=== PATIENT | male | born 1955 | race Caucasian/White ===

== ENCOUNTER 2019-02-20 12:31 | Emergency (ER) | payer OTHER ==
[2019-02-20] MEDS ORDERED: cefTRIAXone 1 GM Vial IM ONE (12:39)
[2019-02-20] MEDS ORDERED: Lidocaine 1% 10 ML MDV INJECT ONE (12:39)
[2019-02-20] MEDS ORDERED: Diphtheria,Pertussis(Acell),Tetanus Vaccine 0.5 ML Syringe IM ONE (12:39)
[2019-02-20] MEDS ORDERED: Lidocaine 1% PF 2 ML SDV INJECT ONE (12:47)
[2019-02-20] MEDS ORDERED: Bacitracin Oint 1 GM U/D Packet TOP ONE (13:33)
--- NOTE | 2019-02-20 13:38 | EDM.PDOC ---
ED HPI GENERAL MEDICAL PROBLEM - General Chief Complaint: Laceration Stated Complaint: RIGHT HAND LACERATION Time Seen by Provider: 02/20/19 13:34 Source of Information: Reports: Patient - History of Present Illness INITIAL COMMENTS - FREE TEXT/NARRATIVE: HISTORY AND PHYSICAL: History of present illness: []Patient presents after getting his hand on the table saw superficial simple laceration involving the palmar aspect of the right hand hyperthenar eminence although extending across the and 8 cm Tendon function is intact pre-and post suture no deep tissues affected however full-thickness skin laceration linear simple Review of systems: As per history of present illness and below otherwise all systems reviewed and negative. Past medical history: As per history of present illness and as reviewed below otherwise noncontributory. Surgical history: As per history of present illness and as reviewed below otherwise noncontributory. Social history: No reported history of drug or alcohol abuse. Family history: As per history of present illness and as reviewed below otherwise noncontributory. Physical exam: HEENT: Atraumatic, normocephalic, pupils reactive, negative for conjunctival pallor or scleral icterus, mucous membranes moist, throat clear, neck supple, nontender, trachea midline. Lungs: Clear to auscultation, breath sounds equal bilaterally, chest nontender. Heart: S1S2, regular, negative for clicks, rubs, or JVD. Abdomen: Soft, nondistended, nontender. Negative for masses or hepatosplenomegaly. Negative for costovertebral tenderness. Pelvis: Stable nontender. Genitourinary: Deferred. Rectal: Deferred. Extremities: Atraumatic, negative for cords or calf pain. Neurovascular unremarkable. Neuro: Awake, alert, oriented. Cranial nerves II through XII unremarkable. Cerebellum unremarkable. Motor and sensory unremarkable throughout. Exam nonfocal. Skin as above history of present illness Diagnostics: [Clinical ] Therapeutics: [T dap Rocephin ] lidocaine Wound cleansed and explored #10 4-0 Prolene sutures interrupted Bacitracin Telfa gauze dressing with cock-up splint forAction and healing Entered wound care instructions Sutures out 10 days Keflex Impression: [ 8 cm, linear laceration, simple ] Definitive disposition and diagnosis as appropriate pending reevaluation and review of above. Right Hand Pain Score (Numeric/FACES): 6 - Related Data Allergies Allergy/AdvReac Type Severity Reaction Status Date / Time No Known Allergies Allergy Verified 02/20/19 12:38 Home Meds: Home Meds amLODIPine [Norvasc] 10 mg PO DAILY 02/20/19 [History] atorvaSTATin [Lipitor] 40 mg PO DAILY 02/20/19 [History] hydroCHLOROthiazide [Hydrochlorothiazide] 25 mg PO DAILY 02/20/19 [History] Past Medical History Cardiovascular History: Reports: High Cholesterol, Hypertension Oncologic (Cancer) History: Reports: Colon - Infectious Disease History Infectious Disease History: Reports: Chicken Pox, Measles, Mumps, Shingles Social & Family History - Family History Family Medical History: Noncontributory - Tobacco Use Smoking Status *Q: Never Smoker - Recreational Drug Use Recreational Drug Use: No ED ROS GENERAL - Review of Systems Review Of Systems: See Below ED EXAM, SKIN/RASH Exam: See Below Course - Vital Signs Last Recorded V/S: Last Vital Signs Temp 97.6 F 02/20/19 12:36 Pulse 96 02/20/19 12:36 Resp 18 02/20/19 12:36 BP 141/86 H 02/20/19 12:36 Pulse Ox 93 L 02/20/19 12:36 - Orders/Labs/Meds Orders: Active Orders 24 hr Category Date Time Status Vaccines to be Administered [RC] PER UNIT ROUTINE Care 02/20/19 12:40 Active Meds: Medications Discontinued Medications Generic Name Dose Route Start Last Admin Trade Name Freq PRN Reason Stop Dose Admin Bacitracin 1 dose 02/20/19 13:33 Bacitracin Oint 1 Gm TOP 02/20/19 13:34 ONETIME ONE Ceftriaxone Sodium 1 gm 02/20/19 12:39 02/20/19 13:02 Rocephin IM 02/20/19 12:40 1 gm ONETIME ONE Administration Diphtheria/Tetanus/Acell Pertussis 0.5 ml 02/20/19 12:39 02/20/19 13:03 Adacel IM 02/20/19 12:40 0.5 ml .ONCE ONE Administration Lidocaine HCl Confirm 02/20/19 13:00 02/20/19 13:20 Xylocaine-Mpf 1% Administered 02/20/19 13:01 Not Given Dose 10 mls @ as directed .ROUTE .STK-MED ONE Lidocaine HCl 10 ml 02/20/19 12:39 02/20/19 13:03 Xylocaine 1% INJECT 02/20/19 12:40 Not Given ONETIME ONE Lidocaine HCl 2 ml 02/20/19 12:47 02/20/19 13:03 Xylocaine-Mpf 1% INJECT 02/20/19 12:48 2 ml ONETIME ONE Administration Lidocaine HCl 10 ml 02/20/19 13:02 02/20/19 13:03 Xylocaine-Mpf 1% INJECT 02/20/19 13:03 10 ml ONETIME ONE Administration Departure - Departure Time of Disposition: 13:37 Disposition: Home, Self-Care 01 Condition: Good Clinical Impression: Laceration - Discharge Information Referrals: PCP,Unobtain [Primary Care Provider] - Additional Instructions: Medication as prescribed Standard wound care instruction Wound clean and dry for 48 hours Return if symptoms persist or worsen Follow-up with primary care in 2 weeks sooner as needed Sutures out in 10-14 days, may return to ER for suture removal [facility] [address] [place] [id number] The following information is given to patients seen in the emergency department who are being discharged to home. This information is to outline your options for follow-up care. We provide all patients seen in our emergency department with a follow-up referral. The need for follow-up, as well as the timing and circumstances, are variable depending upon the specifics of your emergency department visit. If you don't have a primary care physician on staff, we will provide you with a referral. We always advise you to contact your personal physician following an emergency department visit to inform them of the circumstance of the visit and for follow-up with them and/or the need for any referrals to a consulting specialist. The emergency department will also refer you to a specialist when appropriate. This referral assures that you have the opportunity for follow-up care with a specialist. All of these measure are taken in an effort to provide you with optimal care, which includes your follow-up. Under all circumstances we always encourage you to contact your private physician who remains a resource for coordinating your care. When calling for follow-up care, please make the office aware that this follow-up is from your recent emergency room visit. If for any reason you are refused follow-up, please contact the [facility] emergency department at and asked to speak to the emergency department charge nurse. - My Orders Last 24 Hours: My Active Orders 02/20/19 12:40 Vaccines to be Administered [RC] PER UNIT ROUTINE - Assessment/Plan Last 24 Hours: My Active Orders 02/20/19 12:40 Vaccines to be Administered [RC] PER UNIT ROUTINE
== END 2019-02-20 13:44 | disposition home or self-care (01) ==
LOC: MW.ED 12:31
DX: S61.411A Laceration without foreign body of right hand, initial encounter (principal); Z23 Encounter for immunization; I10 Essential (primary) hypertension; E78.00 Pure hypercholesterolemia, unspecified; Z79.899 Other long term (current) drug therapy; W31.2XXA Contact with powered woodworking and forming machines, initial encounter
CPT/HCPCS: 12004; 90471; 90715; 96372; 99282; J0696; J2001